=== PATIENT | male | born 1985 | race Hispanic/Latino ===

== ENCOUNTER 2020-09-21 16:33 | Emergency (ER) | payer BC, SELFPAY ==
[~2020-09-21] VITALS: Ht 170.2 cm; Wt 75.2 kg
[2020-09-21 16:33] VITALS: BP 134/76
== END 2020-09-21 17:33 | disposition home or self-care (01) ==
LOC: M ED 16:33
DX: Z20.828 Contact with and (suspected) exposure to other viral communicable diseases (principal); R05 Cough
CPT/HCPCS: 99283; U0003